=== PATIENT | female | born 1940 | race Caucasian/White ===

== ENCOUNTER 2016-10-15 18:49 | Emergency (ER) | payer BC ==
[~2016-10-15] VITALS: Ht 162.6 cm; Wt 84.5 kg
[~2016-10-15 18:49] MED LIST: ASPI-435 PO; CALC-5 PO; CHOLCAP5 PO; DTR5 PO; LSN/10125 PO; PRLSR20 PO; SIMV40TA2 PO
[2016-10-15 19:07] VITALS: BP 112/73; TEMP 36.9; Ht 162.6 cm; Wt 84.5 kg
[2016-10-15] MEDS ORDERED: XYLOCAINE 1%/SOD BICARB 20 ML VIAL INFIL ONE (19:22)
--- NOTE | 2016-10-15 19:23 | EMERGENCY ROOM VISIT NOTE ---
ED Visit Note First contact with patient: 19:15 I have personally seen and evaluated the patient with the physician special event assistant. I agree with the diagnostic/management decisions and have personally been involved in these decisions and agree with the diagnosis.
[2016-10-15 20:10] VITALS: PULSE 68; O2SAT 93
[2016-10-15] MEDS ORDERED: TRAM-10 PO (20:10)
[2016-10-15] MEDS ORDERED: LISI-729 PO (20:13)
[2016-10-15] MEDS ORDERED: SERT-234 PO (20:14)
--- NOTE | 2016-10-15 20:40 | EMERGENCY ROOM VISIT NOTE ---
History First contact with patient: 19:15 Chief Complaint: LACERATION/CUT (SUT/DERMABOND) Stated Complaint: BIT THROUGH TONGUE History of Present Illness The patient is a 76 year old female who presents to the Emergency Room with complaints of a laceration of her tongue. The patient reports that she hit her face on the night stand last night while attempting to ice her glasses on the table. She does not report falling, and is uncertain exactly how the injury occurred. She denied any loss of consciousness. The patient reports that she did not notice how big the cut was until she saw it this morning upon awakening. She reports that it did bleed extensively on initial injury. She denies any dental pain. She rates her discomfort a 7 out of 10. Tetanus immunization is up-to-date. The patient was evaluated at the [facility] urgent care center and sent here for further evaluation. The patient reports that she did get a prescription for oxacillin from the [facility] urgent care center. Review of Systems 6 system review was performed and was negative except for pertinent positives and negatives as indicated in history of present illness Past Medical/Surgical History Medical Problems: (1) Depressive Disorder Nec (2) Diverticulosis Colon (W/O Ment Of Hemorrhage) (3) Esophageal Reflux (4) Essential (Primary) Hypertension (5) Fem Stress Incontinence (6) Hypertension Nos (7) Osteoporosis Nos (8) Vitamin D Deficiency Nos Surgical Problems: (1) Bariatric Surgery Status (2) Knee Joint Replacement Status Family History Unremarkable Social History Smoking Status: Never Smoker Alcohol Use: none Marital Status: Occupation Status: retired Current/Historical Medications Scheduled Aspirin (Aspirin 81), 81 MG PO HS Calcium-Magnesium W/ Vitamin D (Calcium 500), 600 MG PO BID Cholecalciferol (Vitamin D3), 2 CAP PO BID Lisinopril (Zestril), 5 MG PO DAILY Omeprazole (Prilosec), 20 MG PO QAM Oxybutynin Chloride (Oxybutynin Chloride), 10 MG PO QAM Sertraline (Zoloft), 100 MG PO DAILY Simvastatin (Zocor), 40 MG PO QPM Scheduled PRN Tramadol (Ultram), 50 MG PO Q8H PRN for Pain Allergies Coded Allergies: Bupropion (Verified Allergy, Intermediate, HIVES, 06/08/15) Dust (Verified Allergy, Unknown, HAY FEVER, 06/08/15) Physical Exam Vital Signs Date Time Temp Pulse Resp B/P Pulse Ox O2 Delivery O2 Flow Rate FiO2 10/15/16 20:10 68 16 93 10/15/16 19:07 36.9 90 18 112/73 95 Room Air Pain Rating (0-10): 5.0 Physical Exam CONSTITUTIONAL: Healthy and well nourished. Alert and oriented X 3 with positive affect. Patient does not appear in any acute distress. HEENT: Normocephalic, atraumatic. Pupils equal, round and reactive. OROPHARYNX: Examination shows a 1.5 cm V-shaped laceration on the distal superior aspect of the tongue. No active bleeding noted. She has a moderate amount of white proteinaceous drainage. No overriding erythema or purulent drainage. NECK: Full active range of motion without discomfort. RESPIRATORY: Clear to auscultation bilaterally with no wheezing, crackles, rhonchi or stridor. CARDIOVASCULAR: Regular rate and rhythm with no murmurs, rubs or gallops. INTEGUMENTARY: No rash or other significant dermatologic conditions noted. Medical Decision & Procedures Procedure I discussed suggest a laceration repair under local anesthesia. The patient was in agreement. Using buffered 1% lidocaine without epinephrine, good local anesthesia was administered. 2 4-0 Vicryl simple interrupted and inverted sutures were used to approximate the wound. ED Course Patient history and physical exam were performed. Nurse's notes were reviewed. Laceration repair was performed under local anesthesia. The patient was given instructions on a clear liquid or soft food diet. She was encouraged to take the amoxicillin antibiotics as prescribed by the [facility] urgent care center. Return to the emergency department for any signs of developing infection or other wound concerns. The patient was happy with plan of care, and denied any pain at the time of discharge. The patient was also seen and examined by Dr. Barron, ED attending physician, who agrees with workup and plan of care. Impression Primary Impression: Tongue laceration Departure Information Dispostion Home / Self-Care Forms HOME CARE DOCUMENTATION FORM, IMPORTANT VISIT INFORMATION Patient Instructions My [employer] Additional Instructions Soft food/liquid diet for now. Rinse mouth well after meals. Tylenol as needed for pain. Sutures will dissolve on their own. Follow-up with your family doctor as needed for any further concerns or management. Problem Qualifiers Primary Impression: Tongue laceration Encounter type: initial encounter Qualified Codes: S01.512A - Laceration without foreign body of oral cavity, initial encounter
== END 2016-10-15 20:12 | disposition home or self-care (01) ==
LOC: C.EDB 18:52 → C.EDD 20:12
DX: S01.512A Laceration without foreign body of oral cavity, initial encounter (principal); W22.8XXA Striking against or struck by other objects, initial encounter; I10 Essential (primary) hypertension; F32.9 Major depressive disorder, single episode, unspecified; K21.9 Gastro-esophageal reflux disease without esophagitis; M81.0 Age-related osteoporosis without current pathological fracture; K57.90 Diverticulosis of intestine, part unspecified, without perforation or abscess without bleeding; Z98.84 Bariatric surgery status; Z96.659 Presence of unspecified artificial knee joint; Z79.82 Long term (current) use of aspirin; Z79.899 Other long term (current) drug therapy; Z88.8 Allergy status to other drugs, medicaments and biological substances; Z91.09 Other allergy status, other than to drugs and biological substances

== ENCOUNTER → 2016-12-06 | Outpatient (CLI) | payer BC ==
[~2016-12-06] MED LIST changes: +LISI-729 PO; -LSN/10125 PO; +SERT-234 PO; +TRAM-10 PO
--- NOTE | 2016-12-06 09:45 | DIAGNOSTIC IMAGING REPORT ---
LEFT KNEE 3 VIEWS CLINICAL HISTORY: LEFT KNEE PAIN pain COMPARISON: None. DISCUSSION: Status post total left knee replacement. Good contact between prosthetic and underlying bone. Multiple soft tissue surgical sutures. There is no evidence for soft tissue swelling. IMPRESSION: No acute process post total left knee arthroplasty. Electronically signed by: Luis Alfredo Granda M.D. 12/06/2016 9:44 AM Dictated Date/Time: 12/06/2016 9:43 AM
== END | disposition home or self-care (01) ==
LOC: C.RDSM 13:43
PROVIDERS: ATTEND Physician Assistant
DX: M25.562 Pain in left knee (principal)

== ENCOUNTER 2017-02-17 19:35 | Emergency (ER) | payer BC ==
[~2017-02-17] VITALS: Ht 162.6 cm; Wt 86.2 kg
[2017-02-17 19:37] VITALS: TEMP 36.6; Ht 162.6 cm; Wt 86.2 kg
--- NOTE | 2017-02-17 20:18 | DIAGNOSTIC IMAGING REPORT ---
CT HEAD WITHOUT CONTRAST (CT) CLINICAL HISTORY: Headache status post closed head injury COMPARISON STUDY: 02/17/2011 TECHNIQUE: Axial CT of the brain is performed from the vertex to the skull base. IV contrast was not administered for this examination. A dose lowering technique was utilized adhering to the principles of ALARA. CT DOSE: 955.92 mGy.cm FINDINGS: No intra or extra-axial mass lesions are visualized. There is no CT evidence of acute cortical infarction. There is no evidence of midline shift. There is no acute hemorrhage. No calvarial fractures are visualized. There are minimal white matter hypodensities likely on a small vessel basis. There is no evidence of pathologic ventricular dilatation. There is no evidence of acute sinusitis IMPRESSION: No acute intracranial findings Electronically signed by: Taz Lau M.D. 02/17/2017 8:17 PM Dictated Date/Time: 02/17/2017 8:16 PM
--- NOTE | 2017-02-17 20:21 | DIAGNOSTIC IMAGING REPORT ---
CT OF THE CERVICAL SPINE CLINICAL HISTORY: Neck pain status post trauma COMPARISON STUDY: No previous studies for comparison. CT DOSE: TECHNIQUE: CT scan of the cervical spine was performed from the skull base to the thoracic inlet. Images are reviewed in the axial, sagittal, and coronal planes. IV contrast was not administered for this examination. A dose lowering technique was utilized adhering to the principles of ALARA. FINDINGS: The visualized portions of the lung apices reveal no evidence of pneumothorax. The prevertebral soft tissues are normal. No fractures or traumatic subluxations are visualized. There are multilevel degenerative changes IMPRESSION: No evidence of acute fracture or traumatic subluxation. Electronically signed by: Taz Lau M.D. 02/17/2017 8:20 PM Dictated Date/Time: 02/17/2017 8:18 PM
--- NOTE | 2017-02-17 20:41 | EMERGENCY ROOM VISIT NOTE ---
History Report prepared by Jackie: Gustavo Silver Under the Supervision of: Dr. Yessenia Perea D.O. First contact with patient: 19:42 Chief Complaint: FALL Stated Complaint: HEADACHE,HIT HEAD,FELL History of Present Illness The patient is a 76 year old female who presents to the Emergency Room with complaints of a sudden falling incident that occurred five days ago. She rates her pain as an 8/10 in severity. She states that there has a water leak on the second floor and as she went to step up to enter her house from the garage, she slipped falling backwards. The patient reports that she landed on her back and hit her head on the concrete, but denies any syncopal episode. She states that other than some minor bleeding on the posterior side of her head, she has been fine until yesterday when she developed headache. The patient states that her headache is worsened with movement of her head. She admits that she has a history of knee replacement surgery and takes baby aspirin daily. 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 Source of History: patient Onset: five days ago Position: other (global) Symptom Intensity: 8/10 Timing: other (sudden) Associated Symptoms: + headache, No LOC, No neck pain, No chest pain, No SOB , No nausea, No vomiting, No abdominal pain, No back pain Review of Systems See HPI for pertinent positives & negatives. A total of 10 systems reviewed and were otherwise negative. Past Medical & Surgical Medical Problems: (1) Depressive Disorder Nec (2) Diverticulosis Colon (W/O Ment Of Hemorrhage) (3) Esophageal Reflux (4) Essential (Primary) Hypertension (5) Fem Stress Incontinence (6) Hypertension Nos (7) Osteoporosis Nos (8) Vitamin D Deficiency Nos Surgical Problems: (1) Bariatric Surgery Status (2) Knee Joint Replacement Status Social History Smoking Status: Never Smoker Alcohol Use: none Marital Status: Occupation Status: retired Current/Historical Medications Scheduled Aspirin (Aspirin 81), 81 MG PO HS Calcium-Magnesium W/ Vitamin D (Calcium 500), 600 MG PO BID Cholecalciferol (Vitamin D3), 2 CAP PO BID Lisinopril (Zestril), 5 MG PO DAILY Omeprazole (Prilosec), 20 MG PO QAM Oxybutynin Chloride (Oxybutynin Chloride), 10 MG PO QAM Sertraline (Zoloft), 100 MG PO DAILY Simvastatin (Zocor), 40 MG PO QPM Scheduled PRN Tramadol (Ultram), 50 MG PO Q8H PRN for Pain Allergies Coded Allergies: Bupropion (Verified Allergy, Intermediate, HIVES, 02/17/17) Cat Dander (Verified Allergy, Intermediate, COUGH, SNEEZING, 02/17/17) [place] Oil (Verified Allergy, Intermediate, COUGH, SNEEZING, 02/17/17) Cow Dander (Verified Allergy, Intermediate, COUGH, SNEEZING, 02/17/17) Dust (Verified Allergy, Unknown, HAY FEVER, 02/17/17) Physical Exam Vital Signs Date Time Temp Pulse Resp B/P (MAP) Pulse Ox O2 Delivery O2 Flow Rate FiO2 02/17/17 20:52 67 16 127/67 94 Room Air 02/17/17 19:37 36.6 68 18 147/82 93 Room Air Physical Exam GENERAL: alert, well appearing, well nourished, no distress, non-toxic HEAD: Area of abrasion to the left parietal scalp. EYE EXAM: normal conjunctiva, PERRL and EOM's grossly intact OROPHARYNX: no exudate, no erythema, lips, buccal mucosa, and tongue normal and mucous membranes are moist NECK: supple, no nuchal rigidity, no adenopathy, non-tender LUNGS: Clear to auscultation. Normal chest wall mechanics HEART: no murmurs, S1 normal and S2 normal ABDOMEN: abdomen soft, non-tender, normo-active bowel sounds, no masses, no rebound or guarding. BACK: Back is symmetrical on inspection and there is no deformity, no midline tenderness, no CVA tenderness. SKIN: no rashes and no bruising UPPER EXTREMITIES: upper extremities are grossly normal. LOWER EXTREMITIES: No pitting edema. NEURO EXAM: Normal sensorium, cranial nerves II-XII grossly intact, normal speech, no gross weakness of arms, no gross weakness of legs. Gross sensation intact. Medical Decision & Procedures ER Provider Diagnostic Interpretation: CT scan: Radiology provided the following report CT: The preliminary reading from radiology is the following CT HEAD WITHOUT CONTRAST (CT) CLINICAL HISTORY: Headache status post closed head injury COMPARISON STUDY: 02/17/2011 TECHNIQUE: Axial CT of the brain is performed from the vertex to the skull base. IV contrast was not administered for this examination. A dose lowering technique was utilized adhering to the principles of ALARA. CT DOSE: 955.92 mGy.cm FINDINGS: No intra or extra-axial mass lesions are visualized. There is no CT evidence of acute cortical infarction. There is no evidence of midline shift. There is no acute hemorrhage. No calvarial fractures are visualized. There are minimal white matter hypodensities likely on a small vessel basis. There is no evidence of pathologic ventricular dilatation. There is no evidence of acute sinusitis IMPRESSION: No acute intracranial findings Electronically signed by: Taz Lau M.D. 02/17/2017 8:17 PM Dictated Date/Time: 02/17/2017 8:[address] OF THE CERVICAL SPINE CLINICAL HISTORY: Neck pain status post trauma COMPARISON STUDY: No previous studies for comparison. CT DOSE: TECHNIQUE: CT scan of the cervical spine was performed from the skull base to the thoracic inlet. Images are reviewed in the axial, sagittal, and coronal planes. IV contrast was not administered for this examination. A dose lowering technique was utilized adhering to the principles of ALARA. FINDINGS: The visualized portions of the lung apices reveal no evidence of pneumothorax. The prevertebral soft tissues are normal. No fractures or traumatic subluxations are visualized. There are multilevel degenerative changes IMPRESSION: No evidence of acute fracture or traumatic subluxation. Electronically signed by: Taz Lau M.D. 02/17/2017 8:20 PM Dictated Date/Time: 02/17/2017 8:18 PM ED Course 1943: The patient was evaluated in room B02. A complete history and physical exam was performed. 2034: Upon reevaluation, the patient is feeling better. I discussed the findings and the treatment plan with the patient. She verbalizes agreement and understanding. The patient was discharged home. Medical Decision Differential diagnoses include major intracranial, cervical, spinal, thoracic, abdominal, pelvic and neurologic injury. Fracture, contusion, sprain, strain, laceration, abrasions included as well. Medication Reconciliation: I attest that I have personally reviewed the patient' s current medication list. Blood pressure screening: Patient was found to have a slightly elevated blood pressure due to circumstances. I do not believe that the patient requires hypertension monitoring. Patient well-appearing here despite complaints. Have a low suspicion for any additional occult traumatic injury. Patient with no other complaints or physical exam findings at bedside. Patient with stable gait, tolerating by mouth. Discussed follow-up with family doctor, possible concussion, symptoms to watch and return for, she verbalized understanding was agreeable with plan. Head Trauma GCS Score: 15 Medication Reconcilliation Current Medication List: was personally reviewed by me Blood Pressure Screening Patient's blood pressure: Elevated blood pressure Blood pressure disposition: Elevated BP felt to be situational Impression Primary Impression: Headache Additional Impressions: Closed head injury Fall Scribe Attestation The scribe's documentation has been prepared under my direction and personally reviewed by me in its entirety. I confirm that the note above accurately reflects all work, treatment, procedures, and medical decision making performed by me. Departure Information Dispostion Home / Self-Care Referrals Avery Macdonald M.D. (PCP) Forms HOME CARE DOCUMENTATION FORM, IMPORTANT VISIT INFORMATION Patient Instructions My [facility] Additional Instructions Please call and follow-up with your family doctor. If you have any worsening headache, develop dizziness, vision changes, nausea/vomiting, trouble breathing , chest pain, neck or back pain, numbness or tingling, or you have any other new or concerning symptoms, please return to the emergency room. Problem Qualifiers Primary Impression: Headache Headache type: unspecified Headache chronicity pattern: acute headache Intractability: not intractable Qualified Codes: R51 - Headache Additional Impressions: Closed head injury Encounter type: initial encounter Qualified Codes: S09.90XA - Unspecified injury of head, initial encounter Fall Encounter type: initial encounter Qualified Codes: W19.XXXA - Unspecified fall, initial encounter
[2017-02-17 20:52] VITALS: BP 127/67; PULSE 67; O2SAT 94
== END 2017-02-17 20:52 | disposition home or self-care (01) ==
LOC: C.EDB 19:36
DX: R51 Headache (principal); S09.90XA Unspecified injury of head, initial encounter; W19.XXXA Unspecified fall, initial encounter; F32.9 Major depressive disorder, single episode, unspecified; K57.90 Diverticulosis of intestine, part unspecified, without perforation or abscess without bleeding; K21.9 Gastro-esophageal reflux disease without esophagitis; I10 Essential (primary) hypertension; E55.9 Vitamin D deficiency, unspecified; Z79.82 Long term (current) use of aspirin

== ENCOUNTER → 2017-04-30 | Outpatient (CLI) | payer BC ==
--- NOTE | 2017-04-30 09:08 | DIAGNOSTIC IMAGING REPORT ---
L FEMUR 2 VIEWS CLINICAL HISTORY: 76 years-old Female presenting with LEFT HIP PAIN. TECHNIQUE: Frontal and lateral views of the left femur were obtained. COMPARISON: Plain radiographs of the right knee from 2010. FINDINGS: Multiple curvilinear radiopaque sutures again noted surrounding the total left knee arthroplasty. No acute fracture or malalignment of the left femur. Hip joint congruent. No gross evidence of hardware complication. Small knee joint effusion suspected. Atherosclerosis. IMPRESSION: No acute osseous injury of the left femur. Electronically signed by: Darek Rivers M.D. 04/30/2017 9:07 AM Dictated Date/Time: 04/30/2017 9:05 AM
--- NOTE | 2017-04-30 09:15 | DIAGNOSTIC IMAGING REPORT ---
PELVIS 1 OR 2 VIEWS CLINICAL HISTORY: LEFT HIP PAIN COMPARISON STUDY: Left femur 04/30/2017. FINDINGS: No acute fracture or dislocation within the pelvis or hips. The sacrum appears intact. Mild degenerative changes within the bilateral sacroiliac joints and bilateral hips. Suture material within the left lower quadrant of the abdomen. Degenerative changes and scoliosis of the visualized lumbar spine. Question of focal periostitis within the proximal medial shaft of the left femur. This could represent stress related changes/developing stress fracture. IMPRESSION: Question of focal periostitis within the proximal medial shaft of the left femur. This could represent stress related changes/developing stress fracture. Given the patient's history of left femur pain a dedicated left femur MRI is recommended for further evaluation. Electronically signed by: Mukesh Hampton M.D. 04/30/2017 9:14 AM Dictated Date/Time: 04/30/2017 9:11 AM
== END | disposition home or self-care (01) ==
LOC: C.RDSM 08:43
PROVIDERS: ATTEND Physician Assistant
DX: M79.605 Pain in left leg (principal)

== ENCOUNTER → 2017-05-14 | Outpatient (CLI) | payer BC ==
--- NOTE | 2017-05-14 12:00 | DIAGNOSTIC IMAGING REPORT ---
CT LEFT FEMUR NO CONTRAST CT DOSE: 526.51 mGy.cm CLINICAL HISTORY: STRESS FX OF LEFT FEMUR TECHNIQUE: Helical imaging was acquired in transverse plane. Sagittal and coronal reformatted imaging was performed. A dose lowering technique was utilized adhering to the principles of ALARA. COMPARISON STUDY: Conventional radiographic study dated 04/30/2017 FINDINGS: The bones are osteopenic. There are postsurgical changes of a total left knee arthroplasty. No acute fractures are visualized. There are no areas of periostitis to indicate a stress fracture. It should be noted that MRI is more sensitive for the detection of a stress injury. There are multiple metallic sutures within the anterior soft tissues at the level of the knee. There are vascular calcifications present. IMPRESSION: 1. No fractures identified. 2. Osteopenia. Electronically signed by: Taz Lau M.D. 05/14/2017 11:59 AM Dictated Date/Time: 05/14/2017 11:54 AM
== END | disposition home or self-care (01) ==
LOC: C.CTS 11:35
PROVIDERS: ATTEND Family Medicine
DX: M85.852 Other specified disorders of bone density and structure, left thigh (principal)

== ENCOUNTER 2017-10-21 12:44 | Emergency (ER) | payer BC ==
[~2017-10-21] VITALS: Ht 162.6 cm; Wt 88.0 kg
[2017-10-21 12:58] VITALS: TEMP 36.9; Ht 162.6 cm; Wt 88.0 kg
[2017-10-21] MEDS ORDERED: SODIUM CHLORIDE 0.9% 1000ML 1,000 ML IV STA (13:18)
[2017-10-21] MEDS ORDERED: OPTIRAY 320 IV PRN (13:45)
--- NOTE | 2017-10-21 14:04 | EMERGENCY ROOM VISIT NOTE ---
ED Visit Note First contact with patient: 13:04 I have seen and examined this patient with Theresa Shields and generally agree with the treatment plan as discussed. Current/Historical Medications Scheduled Aspirin (Aspirin 81), 81 MG PO HS Calcium-Magnesium W/ Vitamin D (Calcium 500), 600 MG PO BID Cholecalciferol (Vitamin D3), 2 CAP PO BID Lisinopril (Zestril), 5 MG PO DAILY Omeprazole (Prilosec), 20 MG PO QAM Oxybutynin Chloride (Oxybutynin Chloride), 10 MG PO QAM Sertraline (Zoloft), 100 MG PO DAILY Simvastatin (Zocor), 40 MG PO QPM Scheduled PRN Tramadol (Ultram), 50 MG PO Q8H PRN for Pain Allergies Coded Allergies: Bupropion (Verified Allergy, Intermediate, HIVES, 02/17/17) Cat Dander (Verified Allergy, Intermediate, COUGH, SNEEZING, 02/17/17) [place] Oil (Verified Allergy, Intermediate, COUGH, SNEEZING, 02/17/17) Cow Dander (Verified Allergy, Intermediate, COUGH, SNEEZING, 02/17/17) Dust (Verified Allergy, Unknown, HAY FEVER, 02/17/17) Vital Signs Date Time Temp Pulse Resp B/P (MAP) Pulse Ox O2 Delivery O2 Flow Rate FiO2 10/21/17 12:58 36.9 83 18 119/66 96 Room Air Laboratory Results Test 10/21/17 13:18 Departure Information Referrals Avery Macdonald M.D. (PCP) Patient Instructions My [facility]
--- NOTE | 2017-10-21 14:05 | EMERGENCY ROOM VISIT NOTE ---
ED Visit Note First contact with patient: 13:04 CHIEF COMPLAINT: Fall, ankle pain, rib pain HISTORY OF PRESENTING ILLNESS: This is a 77-year-old female who presents to the emergency department by private vehicle with complaint of right ankle pain, left rib pain, and head injury after a fall. Patient states she got up in the middle of the night around 3 AM to go to the bathroom, states she stepped on something and twisted her right ankle causing her to fall. She states that she hit her left side and head on a chair and then the floor. She denies loss of consciousness. She states she was able to get herself up on her own, and was able to walk on the right ankle, but has continued to have pain and swelling of the ankle. She reports a mild headache and has noticed some bruising around her left eye and forehead. She denies any vision changes of blurry or double vision, denies neck pain, denies blood from the mouth, nose, or ears. She complains of left sided rib pain as well, stating that she fell onto her left side, states that she has increased pain with movement and taking deep breaths, improved pain with rest, rates as 7/10. She has taken naproxen, tramadol, and Tylenol for her pain with minimal improvement. She denies any shortness of breath, wheezing, cough, hemoptysis, dizziness or syncope, nausea, vomiting, diarrhea, dysuria or hematuria, or rash. She does take a baby aspirin daily, denies any other blood thinners. REVIEW OF SYSTEMS: A complete 10 point review of systems was reviewed with the patient with pertinent positives and negatives as per history of present illness. All else were negative. PAST MEDICAL HISTORY: Hypertension, hyperlipidemia, GERD, depression. SOCIAL HISTORY: Lives at home alone. Denies tobacco, alcohol, recreational drug use. ALLERGIES: Reviewed in chart. PHYSICAL EXAM: VITAL SIGNS - Vital signs and nursing notes were reviewed. GENERAL - Pleasant and cooperative. No acute distress. Communicates well with provider and answers questions appropriately. HEAD - Normocephalic. There is ecchymosis extending from the left anterior forehead, periorbital ecchymosis and swelling. There is tenderness to palpation of the orbital rim. No Martinez's Sign. No depressed skull fractures palpable. EYES - PERRL with EOMI bilaterally. Without subconjunctival hemorrhage. Palpebral conjunctiva pink and moist with no injection. EARS - No deformities of external structures noted on gross examination bilaterally. No hemotympanum present. No tympanic perforation noted. NOSE - Midline and without cyanosis. No epistaxis or clear watery discharge noted. Septum midline without deviation. No septal hematoma noted. No overlying ecchymosis noted. MOUTH/OROPHARYNX - Without perioral cyanosis. Tongue midline with equal elevation of palate bilaterally. No blood noted in the oropharynx. No tonsillar hypertrophy, erythema, or exudates noted. No dental fractures noted. NECK - FROM assessed. No nuchal rigidity. No tenderness to palpation over the cervical spinous processes. No cervical paraspinal muscle tenderness noted. LUNGS - Chest wall symmetric without accessory muscle use, intercostals retractions, ecchymosis or abrasions. There is tenderness to palpation of the anterior and lateral left chest wall, no crepitus, no palpable fractures or open wounds on the chest wall. Decreased breath sounds on the left compared to right, clear to auscultation with no wheezes, Rales, rhonchi, or stridor heard. CARDIAC - RRR with S1/S2. No murmur, rubs, or gallops appreciated. ABDOMEN - There is tenderness to palpation of the LUQ and left flank. No ecchymosis or abrasions. Abdominal contour normal without pulsations or visible masses. BS normoactive all four quadrants. EXTREMITIES - There is swelling and tenderness to palpation along the lateral aspect of the foot and ankle, most significant over the lateral malleolus. Tenderness at the proximal 5th metatarsal to palpation. No gross deformities noted of the extremities. +2 radial and dorsalis pedis pulses palpated throughout. FROM with no tremors, fasciculations, or clonus noted on PROM throughout. +5/5 strength noted in UE/LE bilaterally. NEUROLOGIC - Cranial nerves II through XII grossly intact. Sensory intact to light touch throughout. Patient able to perform rapid alternating movements appropriately. Negative Romberg and Pronator Drift. PSYCH - A&Ox4 and cooperates fully with examiner. Pt is very pleasant and interacts well with examiner. ED COURSE AND MEDICAL DECISION MAKING: CC: Patient presenting with complaint of fall, head injury, left rib pain, right ankle pain DIFFERENTIAL DIAGNOSIS: Includes, but not limited to traumatic injury including concussion, intracranial hemorrhage, cervical spine injury, rib fracture, rib contusion, pneumothorax, hemothorax, pulmonary contusion, cardiac contusion, solid organ injury, intra-abdominal hemorrhage, ankle sprain/strain, fracture, among others. INTERPRETATION OF LABS: Mild leukocytosis, no anemia, no significant electrolyte abnormalities, normal renal function, normal liver enzymes and lipase. Coagulation factors within normal limits. Negative troponin. Urinalysis consistent with UTI. IMAGING: HEAD WITHOUT CONTRAST (CT) CLINICAL HISTORY: 77 years-old Female presenting with fall, hit head, on aspirin. TECHNIQUE: Multidetector CT imaging of the head was performed without the use of intravenous contrast. IV contrast: None. A dose lowering technique was used consistent with the principles of ALARA (as low as reasonably achievable). COMPARISON: 02/17/2017. CT DOSE (mGy.cm): The estimated cumulative dose is 2492.63 mGy.cm. FINDINGS: [employer] topogram: Unremarkable. Ventricles and sulci normal in size. Brain parenchyma normal in appearance with preserved bravo-white differentiation. No mass effect or midline shift. No hemorrhage or acute territorial infarct. No extra-axial fluid collection. Paranasal sinuses and mastoid air cells clear. Calvarium intact. IMPRESSION: 1. No acute intracranial abnormality. ----- MAXILLOFACIAL CT WITHOUT CONTRAST CLINICAL HISTORY: fall, hit head, brusing around left eye COMPARISON STUDY: Head CT February 17, 2017. TECHNIQUE: A maxillofacial CT was performed without IV contrast. Coronal and sagittal reformats were viewed. A dose lowering technique was utilized adhering to the principles of ALARA. FINDINGS: Left facial contusion is noted. The left globe is intact and there is no retrobulbar hematoma. No acute facial fracture is identified. The orbital floors are intact. Multiple dental outcomes are noted. Alignment of the temporomandibular joints is anatomic. IMPRESSION: No acute facial fracture. Left facial contusion. Left globe intact with no retrobulbar hematoma. ----- CT OF THE CERVICAL SPINE WITHOUT CONTRAST CLINICAL HISTORY: EVALUATE FOR TRAUMA/INJURY COMPARISON STUDY: Cervical spine CT February 17, 2017. TECHNIQUE: Helical axial images of the cervical spine were obtained without IV contrast. Sagittal and coronal reconstructions were viewed. A dose lowering technique was utilized adhering to the principles of ALARA. FINDINGS: Reversal of the normal cervical lordosis is unchanged since exam of February 17, 2017. There is severe multilevel degenerative disc disease and moderate multilevel facet arthrosis. The craniocervical junction is intact. There is no acute fracture. There is no prevertebral edema. Slight anterolisthesis of C7 on T1 and T1 on T2 is unchanged. IMPRESSION: No acute cervical spine fracture or subluxation. ----- CT (CHEST) THORAX WITH CLINICAL HISTORY: 77 years-old Female presenting with fall, left ant and lat rib pain. TECHNIQUE: Multidetector CT imaging of the chest was performed after the administration of intravenous contrast. IV contrast: 117 mL of Optiray 320. A dose lowering technique was used consistent with the principles of ALARA (as low as reasonably achievable). COMPARISON: Chest x-ray from 2011. CT DOSE (mGy.cm): The estimated cumulative dose is 2492.[address] scans. FINDINGS: [employer] topogram: Surgical clips project over the epigastrium. Scoliosis. On soft tissue windows, calcified nodule may be present in the right lobe of the thyroid. Architectural distortion of the breasts may suggest prior reduction mammoplasty. No axillary, supraclavicular, hilar, or mediastinal lymphadenopathy. Four-vessel aortic arch. Left atrial enlargement of the heart. Coronary artery and aortic valve calcification. No pericardial or pleural effusion. Biliary duct dilatation likely a reservoir effect in the post cholecystectomy state. 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 On lung windows, solid peripheral 6 mm nodule at the posterior basal right lower lobe (series 11 image 188). Immediately superior to this is a smaller solid 4 mm nodule in the same segment (series 11 image 180). Respiratory motion artifact mildly degrades evaluation of the lung parenchyma. Solid peripheral 5 mm nodule at the central base of the right lower lobe (series 11 image 182). 2 solid punctate nodules noted in the periphery of the left upper lobe (series 11 image 110). Solid peripheral 4 mm nodule in the posterior apical segment of the left upper lobe (series 11 image 72). Solid 3 mm nodule in the superior segment of the left lower lobe (series 11 image 114). Minimal dependent changes and dependent nodularity, possibly atelectasis. Central airways patent. On bone windows, degenerative changes of the spine. Nondisplaced fractures suspected at the left third and fourth ribs laterally given contour abnormality. IMPRESSION: 1. Findings suggest nondisplaced fractures of the lateral left third and fourth ribs. No other evidence of acute intrathoracic injury. 2. Multiple solid pulmonary nodules measuring up to 6 mm. Follow-up per [place] [employer] 2017 recommendations below. ----- ABD/PELVIS IV CONTRAST ONLY CLINICAL HISTORY: 77 years-old Female presenting with fall, LUQ pain, rib pain. TECHNIQUE: Multidetector CT of the abdomen and pelvis was performed after the administration of intravenous contrast. IV contrast: 117 mL of Optiray 320. A dose lowering technique was used consistent with the principles of ALARA (as low as reasonably achievable). COMPARISON: None. CT DOSE (mGy.cm): The estimated cumulative dose is 2492.63. FINDINGS: [employer] topogram: Surgical clips project over the epigastrium. Lung bases: Minimal basilar opacities, likely atelectasis. Multiple solid pulmonary nodules at the lung bases. Multichamber enlargement of the heart. Coronary artery calcification. No pericardial or pleural effusion. Liver: Normal morphology. Subcentimeter hypodense lesion in the right hepatic lobe, indeterminate but likely hepatic cyst. Patent hepatic vasculature. Biliary: Mild biliary ductal prominence likely a reservoir effect in the post cholecystectomy state. Gallbladder surgically absent. Pancreas: Moderate parenchymal atrophy. Spleen: Normal. Adrenal glands: Nonspecific thickening of the lateral limb of the left adrenal gland. Right adrenal gland normal. Kidneys and ureters: Mild left perinephric fat stranding.. Mild bilateral periureteral fat stranding. Significant urothelial thickening greater on the left but bilateral. No hydronephrosis. No nephrolithiasis. No ureteral calculus. Bladder: Circumferential bladder wall thickening. Pelvic organs: Uterus surgically absent. No adnexal mass. Bowel: Severe diverticulosis of the sigmoid colon. Mild stool burden throughout normal caliber colon. Normal appendix. No bowel obstruction. 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 The distal small bowel anastomosis is patent. No abnormal distention of the pancreaticobiliary limb or excluded stomach. Peritoneal cavity: No free fluid or intraperitoneal gas. Lymph nodes: No enlarged lymph nodes in the abdomen or pelvis. Vasculature: Atherosclerosis of the normal caliber abdominal aorta. IVC patent. Abdominal wall: Postsurgical changes of the umbilical abdominal wall. Atrophy of the rectus abdominis greater on the right. Musculoskeletal: Degenerative changes of the spine. Acute fracture of the left lateral eighth through 10th ribs. IMPRESSION: 1. Acute fractures of the lateral eighth through 10th left ribs. 2. No evidence of intra-abdominal injury. 3. Multiple solid pulmonary nodules at the lung bases. Please see separate dictated CT of the chest. 4. Diverticulosis. 5. 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 6. Significant urothelial thickening and mild perinephric and periureteral inflammatory change accompanied by mild circumference of bladder wall thickening. This raises concern for cystitis with upper tract involvement of infection. Correlate with urinalysis. No hydronephrosis. ----- R ANKLE MIN 3 VIEWS ROUTINE CLINICAL HISTORY: fall, twisted foot, ankle, eval trauma COMPARISON: None FINDINGS: Alignment of the right ankle is anatomic. There is no acute fracture. There is moderate lateral ankle soft tissue swelling. Talar dome is intact. There is moderate plantar calcaneal spurring. Note is made of moderate to severe mid foot osteoarthritis. IMPRESSION: 1. No acute fracture or dislocation of the right ankle. 2. 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 3. Lateral ankle soft tissue swelling. ----- R FOOT MIN 3 VIEWS ROUTINE CLINICAL HISTORY: Right foot pain status post trauma COMPARISON: None. DISCUSSION: The bones are osteopenic. No acute fractures are visualized. Moderate degenerative changes are present within the midfoot and hindfoot. As a plantar calcaneal spur. IMPRESSION: 1. Osteopenia 2. No acute fractures 3. Moderate arthritic changes EKG: Shows normal sinus rhythm with a rate of 77 bpm, no acute ischemic changes , no significant changes when compared to previous EKG from 02/19/2011 by my interpretation. MEDICATION RECONCILIATION: I attest that I have personally reviewed the patient 's current medication list. INITIAL VITAL SIGNS REVIEW: I reviewed the patient's initial vital signs and interpret them as follows: T: Afebrile; BP: Normotensive; HR: WNL; RR: WNL; Pulse Ox: WNL on RA. Blood pressure screening: The patient was found to have normal blood pressure on screening and does not require follow-up for repeat blood pressure check. SUMMARY: Patient was evaluated at bedside, history and physical exam performed. Patient is alert and oriented, in no acute distress, resting calmly on the stretcher. There is moderate swelling and tenderness to palpation over the lateral aspect of the right ankle and foot. She is neurovascularly intact distal to the injury. There is a moderate amount of periorbital ecchymosis and swelling about the left eye, extending up into the forehead. There is tenderness to palpation of the anterior and lateral There are no neurologic deficits on exam. Vision is grossly intact. Left rib cage, as well as left upper quadrant abdominal tenderness to palpation. Orders were placed at bedside for labs, IV fluids for hydration and setting of trauma, x-rays of the right foot and ankle, CT imaging of the head, cervical spine, chest, abdomen and pelvis to evaluate for traumatic injury. Patient was offered something for pain, she did not want any narcotics because she drove herself here. She has already taken Tylenol and tramadol, limiting pain management options. Patient states she does not want anything for pain at this time. EKG reviewed at bedside, no acute ischemic changes noted. Patient discussed with Dr. Coulter, who agrees with my assessment and plan. Labs and imaging reviewed as above, notable for 5 left-sided rib fractures, as well as incidental finding for cystitis and possible developing pyelonephritis. Dr. Coulter and myself spoke with the patient and discussed her results with her. She was offered admission, but is adamant about wishing to go home. We did discuss pain management options and the importance of incentive spirometry use in the setting of her multiple rib fractures, she verbalized understanding. Patient does deny any symptoms of a urinary tract infection, denies any recent fevers or chills, and denies back pain. However given the findings on CT in setting of obvious infected UA, will treat this patient like a pyelonephritis. I discussed the patient with Mariana, ED pharmacist, who recommended giving a dose of IV Rocephin now and recommended Cefdinir for management of pyelonephritis, to avoid use of fluoroquinolones or Bactrim in this patient of advanced age. Patient was placed on the cardiac nurse specialist and monitored throughout the entire extent of their stay. In addition, the patient's pulse oximetry was monitored throughout the entire stay. Any abnormalities or aberrancies were addressed appropriately. Patient reassessed multiple times throughout ED stay, she did report some improvement in her pain after an additional dose of Tylenol, and has remained stable and well-appearing during her time in the emergency department. Patient was updated on all results and plan for management at home, particularly use of incentive spirometer and pain control for preventing pneumonia, and treatment of her UTI. She was encouraged to follow closely with her PCP, and was also given strict return precautions should her symptoms worsen, she verbalized understanding. Patient was discharged home in stable condition and ambulatory. Nursing staff notified me that the patient left prior to receiving her written discharge instructions. The patient was made aware of CT results and need for follow up chest CT regarding pulmonary nodules. Attempts were made to contact the patient regarding her discharge instructions, but unable to reach her via phone. I spoke with Anthony, charged nurse, and the Chest CT report will be faxed to the patient's PCP tomorrow to ensure appropriate follow up. Current/Historical Medications Scheduled Aspirin (Aspirin 81), 81 MG PO HS Calcium-Magnesium W/ Vitamin D (Calcium 500), 600 MG PO BID Cefdinir (Omnicef), 1 CAP PO BID Cholecalciferol (Vitamin D3), 2 CAP PO BID Lisinopril (Zestril), 5 MG PO DAILY Omeprazole (Prilosec), 20 MG PO QAM Oxybutynin Chloride (Oxybutynin Chloride), 10 MG PO QAM Sertraline (Zoloft), 100 MG PO DAILY Simvastatin (Zocor), 40 MG PO QPM Scheduled PRN Oxycodone Ir (Roxicodone Ir), 1-2 TAB PO Q6H PRN for Severe Pain Tramadol (Ultram), 50 MG PO Q8H PRN for Pain Allergies Coded Allergies: Bupropion (Verified Allergy, Intermediate, HIVES, 02/17/17) Cat Dander (Verified Allergy, Intermediate, COUGH, SNEEZING, 02/17/17) Alden Oil (Verified Allergy, Intermediate, COUGH, SNEEZING, 02/17/17) Cow Dander (Verified Allergy, Intermediate, COUGH, SNEEZING, 02/17/17) Dust (Verified Allergy, Unknown, HAY FEVER, 02/17/17) Vital Signs Date Time Temp Pulse Resp B/P (MAP) Pulse Ox O2 Delivery O2 Flow Rate FiO2 10/21/17 17:13 85 16 135/81 94 Room Air 10/21/17 15:55 82 18 132/76 96 Room Air 10/21/17 14:45 77 20 122/63 96 Room Air 10/21/17 14:45 96 Room Air 10/21/17 12:58 36.9 83 18 119/66 96 Room Air Laboratory Results 10/21/17 14:08 Red Blood Count 4.33, Mean Corpuscular Volume 89.1, Mean Corpuscular Hemoglobin 30.3, Mean Corpuscular Hemoglobin Concent 33.9, Mean Platelet Volume 10.4, Neutrophils (%) (Auto) 76.1, Lymphocytes (%) (Auto) 10.0, Monocytes (%) (Auto) 12.8, Eosinophils (%) (Auto) 0.5, Basophils (%) (Auto) 0.3, Neutrophils # (Auto ) 8.73, Lymphocytes # (Auto) 1.15, Monocytes # (Auto) 1.47, Eosinophils # (Auto ) 0.06, Basophils # (Auto) 0.03 10/21/17 14:08 Test 10/21/17 13:58 10/21/17 14:08 10/21/17 15:55 Bedside Glucose 112 mg/dl (70-90) White Blood Count 11.48 K/uL (4.8-10.8) Red Blood Count 4.33 M/uL (4.2-5.4) Hemoglobin 13.1 g/dL (12.0-16.0) Hematocrit 38.6 % (37-47) Mean Corpuscular Volume 89.1 fL (80-100) Mean Corpuscular Hemoglobin 30.3 pg (25-34) Mean Corpuscular Hemoglobin Concent 33.9 g/dl (32-36) Platelet Count 229 K/uL (130-400) Mean Platelet Volume 10.4 fL (7.4-10.4) Neutrophils (%) (Auto) 76.1 % Lymphocytes (%) (Auto) 10.0 % Monocytes (%) (Auto) 12.8 % Eosinophils (%) (Auto) 0.5 % Basophils (%) (Auto) 0.3 % Neutrophils # (Auto) 8.73 K/uL (1.4-6.5) Lymphocytes # (Auto) 1.15 K/uL (1.2-3.4) Monocytes # (Auto) 1.47 K/uL (0.11-0.59) Eosinophils # (Auto) 0.06 K/uL (0-0.5) Basophils # (Auto) 0.03 K/uL (0-0.2) RDW Standard Deviation 47.4 fL (36.4-46.3) RDW Coefficient of Variation 14.4 % (11.5-14.5) Immature Granulocyte % (Auto) 0.3 % Immature Granulocyte # (Auto) 0.04 K/uL (0.00-0.02) Prothrombin Time 11.1 SECONDS (9.0-12.0) Prothromb Time International Ratio 1.1 (0.9-1.1) Activated Partial Thromboplast Time 27.8 SECONDS (21.0-31.0) Partial Thromboplastin Ratio 1.1 Anion Gap 7.0 mmol/L (3-11) Est Creatinine Clear Calc Drug Dose 67.6 ml/min Estimated GFR () 88.3 Estimated GFR (Non- 76.2 BUN/Creatinine Ratio 22.3 (10-20) Calcium Level 8.6 mg/dl (8.5-10.1) Total Bilirubin 0.6 mg/dl (0.2-1) Direct Bilirubin 0.1 mg/dl (0-0.2) Aspartate Amino Transf (AST/SGOT) 14 U/L (15-37) Alanine Aminotransferase (ALT/SGPT) 12 U/L (12-78) Alkaline Phosphatase 99 U/L (45-117) Troponin I < 0.015 ng/ml (0-0.045) Total Protein 7.3 gm/dl (6.4-8.2) Albumin 2.9 gm/dl (3.4-5.0) Lipase 59 U/L (73-393) Urine Color YELLOW Urine Appearance TURBID (CLEAR) Urine pH 6.0 (4.5-7.5) Urine Specific [place] 1.027 (1.000-1.030) Urine Protein TRACE (NEG) Urine Glucose (UA) NEG (NEG) Urine Ketones NEG (NEG) Urine Occult Blood 1+ (NEG) Urine Nitrite POS (NEG) Urine Bilirubin NEG (NEG) Urine Urobilinogen NEG (NEG) Urine Leukocyte Esterase LARGE (NEG) Urine WBC (Auto) >30 /hpf (0-5) Urine RBC (Auto) 0-4 /hpf (0-4) Urine Hyaline Casts (Auto) 1-5 /lpf (0-5) Urine Epithelial Cells (Auto) 10-20 /lpf (0-5) Urine Bacteria (Auto) 4+ (NEG) Medications Administered Medications (Trade) Dose Ordered Sig/Ojy Route Start Time Stop Time Status Last Admin Dose Admin Sodium Chloride 1,000 ml @ 999 mls/hr Q1H1M STAT IV 10/21/17 13:18 10/21/17 14:18 DC 10/21/17 13:18 999 MLS/HR Acetaminophen (Tylenol Tab) 1,000 mg NOW STAT PO 10/21/17 16:23 10/21/17 16:24 DC 10/21/17 16:41 1,000 MG Ceftriaxone Sodium (Rocephin Im) 1,000 mg NOW STAT IM 10/21/17 16:56 10/21/17 16:57 DC 10/21/17 17:06 1,000 MG Departure Information Impression Primary Impression: Multiple rib fractures involving four or more ribs Additional Impressions: UTI (urinary tract infection) Right ankle sprain Facial contusion Dispostion Home / Self-Care Condition GOOD Prescriptions Cefdinir (OMNICEF) 300 Mg Cap 1 CAP PO BID for 10 Days, #20 CAP Prov: Theresa Shields CRNP 10/21/17 Oxycodone Ir (Roxicodone Ir) 5 Mg Tab 1-2 TAB PO Q6H Y for Severe Pain, #20 TAB Prov: Theresa Shields CRNP 10/21/17 Referrals Avery Macdonald M.D. (PCP) Anton Corado M.D. Patient Instructions ED Fx Rib, ED Sprain Ankle, ED UTI Cystitis Female, ED Walker Use, [facility] Additional Instructions You have been evaluated and treated in the Emergency Department for injuries secondary to your fall earlier today. Workup today has shown that you have 5 left-sided rib fractures (ribs 4, 5, 8, 9, and 10), a left facial contusion, a right ankle sprain, and a urinary tract infection (UTI). You have been prescribed oxycodone to be taken for SEVERE pain. Please take as prescribed. This is a narcotic, you should not drive, operate machinery, or drink alcohol while you are taking this medication. All narcotics have the potential to cause constipation, you should take an [id number] stool softener such as Colace or Senna while you are taking the narcotic to help prevent against constipation. For pain control, you can use the following [id number] medicines (if >12 yo): - Extra strength (500mg/tab) Tylenol (acetaminophen) 1-2 tabs every 6-8 hours as needed. Do not exceed 6 tablets in a 24 hour period. Avoid taking more than 3 grams (3000 mg) of Tylenol per day. This includes any other sources of acetaminophen you may take on a regular basis. You should not take any NSAIDs such as aspirin, ibuprofen, Aleve or naproxen for the next 48 hours, as these medications can increase your risk for bleeding and bruising. After 48 hours, you may take Regular strength (200 mg/tab) Advil (ibuprofen) 1- 2 tabs every 4-6 hours as needed for pain. Do not exceed a dose of 2400 mg per day. You may also resume taking your daily aspirin after 48 hours. Apply ice to the areas of pain for the first 3 days to help decrease pain and inflammation. After the first 3 days, a heating pad can be used over the area for continued soothing relief. Use the incentive spirometer as directed, every 10-15 minutes while awake. Hugging a small pillow while coughing or sneezing can help to reduce your pain. You have been prescribed Cefdinir to be taken twice a day for 10 days. This is an antibiotic to treat your urinary tract infection. All antibiotics have the potential to cause diarrhea. Stop this medication and contact a medical provider if you were to develop any significant adverse side effects including: wheezing, shortness of breath, passing out, vomiting, or a diffuse rash. Always take antibiotics as directed and COMPLETE the ENTIRE course regardless of the improvement of your symptoms. You have been placed in an ankle splint to help support your ankle sprain. Use your walker at home to help support herself when walking to try to keep as much weight off of the right ankle as possible. Keep the right ankle elevated as much as possible to help reduce pain and swelling. Apply ice to the ankle for the next 2 days. Drink plenty of fluids to stay well hydrated. Please follow-up with your Primary Care Provider in the next 2-3 days for further evaluation and treatment of your rib pain. You should also follow-up with your orthopedic surgeon in the next week regarding your ankle injury. Please return to the emergency department if your symptoms worsen, including severe worsening pain, shortness or breath, development of a wet cough or coughing up blood, fevers or chills, low back pain, persistent nausea/vomiting, large amounts of blood in your urine or stool, severe headache, vision changes, confusion, numbness or weakness on one side of the body, balance issues or difficulty walking, or any other concerns. Problem Qualifiers Additional Impressions: UTI (urinary tract infection) Urinary tract infection type: acute cystitis Hematuria presence: with hematuria Qualified Codes: N30.01 - Acute cystitis with hematuria Right ankle sprain Encounter type: initial encounter Involved ligament of ankle: unspecified ligament Qualified Codes: S93.401A - Sprain of unspecified ligament of right ankle, initial encounter Facial contusion Encounter type: initial encounter Qualified Codes: S00.83XA - Contusion of other part of head, initial encounter
[2017-10-21 14:19] LABS: BASO % 0.3 %; BASO ABS # 0.03 K/uL (0-0.2); EOS % 0.5 %; EOS ABS # 0.06 K/uL (0-0.5); HEMATOCRIT 38.6 % (37-47); HEMOGLOBIN 13.1 g/dL (12.0-16.0); IG# 0.04 K/uL (0.00-0.02); LYMPH ABS # 1.15 K/uL (1.2-3.4); MEAN CELL VOLUME 89.1 fL (80-100); MEAN CORPUSCULAR HEMOGLOBIN 30.3 pg (25-34); MEAN CORPUSCULAR HGB CONC 33.9 g/dl (32-36); MEAN PLATELET VOLUME 10.4 fL (7.4-10.4); MONO % 12.8 %; MONO ABS # 1.47 K/uL (0.11-0.59); NEUT % 76.1 %; NEUT ABS # 8.73 K/uL (1.4-6.5); PLATELET COUNT 229 K/uL (130-400); RED CELL DISTRIBUTION WIDTH CV 14.4 % (11.5-14.5); RED CELL DISTRIBUTION WIDTH SD 47.4 fL (36.4-46.3); WHITE BLOOD COUNT 11.48 K/uL (4.8-10.8)
[2017-10-21 14:31] LABS: INR 1.1 (0.9-1.1); PTT PATIENT 27.8 SECONDS (21.0-31.0)
[2017-10-21 14:37] LABS: ALBUMIN 2.9 gm/dl (3.4-5.0); ALT/SGPT 12 U/L (12-78); BLOOD UREA NITROGEN 17 mg/dl (7-18); CALCIUM 8.6 mg/dl (8.5-10.1); CARBON DIOXIDE 27 mmol/L (21-32); CREATININE 0.76 mg/dl (0.60-1.20); GLUCOSE 110 mg/dl (70-99); LIPASE 59 U/L (73-393); POTASSIUM 3.9 mmol/L (3.5-5.1); SODIUM 134 mmol/L (136-145)
[2017-10-21 14:42] LABS: ALKALINE PHOSPHATASE 99 U/L (45-117); AST/SGOT 14 U/L (15-37); TOTAL PROTEIN 7.3 gm/dl (6.4-8.2)
[2017-10-21 14:45] VITALS: O2SAT 96
--- NOTE | 2017-10-21 15:36 | DIAGNOSTIC IMAGING REPORT ---
HEAD WITHOUT CONTRAST (CT) CLINICAL HISTORY: 77 years-old Female presenting with fall, hit head, on aspirin. TECHNIQUE: Multidetector CT imaging of the head was performed without the use of intravenous contrast. IV contrast: None. A dose lowering technique was used consistent with the principles of ALARA (as low as reasonably achievable). COMPARISON: 02/17/2017. CT DOSE (mGy.cm): The estimated cumulative dose is 2492.63 mGy.cm. FINDINGS: Pediatric Anesthesiologist topogram: Unremarkable. Ventricles and sulci normal in size. Brain parenchyma normal in appearance with preserved bravo-white differentiation. No mass effect or midline shift. No hemorrhage or acute territorial infarct. No extra-axial fluid collection. Paranasal sinuses and mastoid air cells clear. Calvarium intact. IMPRESSION: 1. No acute intracranial abnormality. Electronically signed by: Darek Rivers M.D. 10/21/2017 3:35 PM Dictated Date/Time: 10/21/2017 3:34 PM
--- NOTE | 2017-10-21 15:49 | DIAGNOSTIC IMAGING REPORT ---
MAXILLOFACIAL CT WITHOUT CONTRAST CLINICAL HISTORY: fall, hit head, brusing around left eye COMPARISON STUDY: Head CT February 17, 2017. TECHNIQUE: A maxillofacial CT was performed without IV contrast. Coronal and sagittal reformats were viewed. A dose lowering technique was utilized adhering to the principles of ALARA. FINDINGS: Left facial contusion is noted. The left globe is intact and there is no retrobulbar hematoma. No acute facial fracture is identified. The orbital floors are intact. Multiple dental outcomes are noted. Alignment of the temporomandibular joints is anatomic. IMPRESSION: No acute facial fracture. Left facial contusion. Left globe intact with no retrobulbar hematoma. Electronically signed by: Colton Chou M.D. 10/21/2017 3:48 PM Dictated Date/Time: 10/21/2017 3:45 PM
--- NOTE | 2017-10-21 15:53 | DIAGNOSTIC IMAGING REPORT ---
CT OF THE CERVICAL SPINE WITHOUT CONTRAST CLINICAL HISTORY: EVALUATE FOR TRAUMA/INJURY COMPARISON STUDY: Cervical spine CT February 17, 2017. TECHNIQUE: Helical axial images of the cervical spine were obtained without IV contrast. Sagittal and coronal reconstructions were viewed. A dose lowering technique was utilized adhering to the principles of ALARA. FINDINGS: Reversal of the normal cervical lordosis is unchanged since exam of February 17, 2017. There is severe multilevel degenerative disc disease and moderate multilevel facet arthrosis. The craniocervical junction is intact. There is no acute fracture. There is no prevertebral edema. Slight anterolisthesis of C7 on T1 and T1 on T2 is unchanged. IMPRESSION: No acute cervical spine fracture or subluxation. Electronically signed by: Colton Chou M.D. 10/21/2017 3:52 PM Dictated Date/Time: 10/21/2017 3:48 PM
--- NOTE | 2017-10-21 15:53 | DIAGNOSTIC IMAGING REPORT ---
CT (CHEST) THORAX WITH CLINICAL HISTORY: 77 years-old Female presenting with fall, left ant and lat rib pain. TECHNIQUE: Multidetector CT imaging of the chest was performed after the administration of intravenous contrast. IV contrast: 117 mL of Optiray 320. A dose lowering technique was used consistent with the principles of ALARA (as low as reasonably achievable). COMPARISON: Chest x-ray from 2011. CT DOSE (mGy.cm): The estimated cumulative dose is 2492.[address] scans. FINDINGS: Weight Loss Consultant topogram: Surgical clips project over the epigastrium. Scoliosis. On soft tissue windows, calcified nodule may be present in the right lobe of the thyroid. Architectural distortion of the breasts may suggest prior reduction mammoplasty. No axillary, supraclavicular, hilar, or mediastinal lymphadenopathy. Four-vessel aortic arch. Left atrial enlargement of the heart. Coronary artery and aortic valve calcification. No pericardial or pleural effusion. Biliary duct dilatation likely a reservoir effect in the post cholecystectomy state. 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 On lung windows, solid peripheral 6 mm nodule at the posterior basal right lower lobe (series 11 image 188). Immediately superior to this is a smaller solid 4 mm nodule in the same segment (series 11 image 180). Respiratory motion artifact mildly degrades evaluation of the lung parenchyma. Solid peripheral 5 mm nodule at the central base of the right lower lobe (series 11 image 182). 2 solid punctate nodules noted in the periphery of the left upper lobe (series 11 image 110). Solid peripheral 4 mm nodule in the posterior apical segment of the left upper lobe (series 11 image 72). Solid 3 mm nodule in the superior segment of the left lower lobe (series 11 image 114). Minimal dependent changes and dependent nodularity, possibly atelectasis. Central airways patent. On bone windows, degenerative changes of the spine. Nondisplaced fractures suspected at the left third and fourth ribs laterally given contour abnormality. IMPRESSION: 1. Findings suggest nondisplaced fractures of the lateral left third and fourth ribs. No other evidence of acute intrathoracic injury. 2. Multiple solid pulmonary nodules measuring up to 6 mm. Follow-up per [place] Society 2017 recommendations below. Please refer to below summary of Fleischner Society 2017 recommendations for follow-up of incidental CT nodules (H Maegan et al. Guidelines for management of incidental pulmonary nodules detected on CT images: From the Fleischner Society 2017. Radiology 2017; 284: 228-243.) SOLID NODULES Single nodule; size < 6 mm * Low risk patients: No routine follow-up * High risk patients: Optional CT at 12 months Single nodule; size 6-8 mm * Low risk patients: CT at 6-12 months, then consider CT at 18-24 months * High risk patients: CT at 6-12 months, then at 18-24 months Single nodule; size > 8 mm * Either low or high risk patients: Considered CT at 3 months, PET/CT, or tissue sampling Multiple nodules; size < 6 mm * Low risk patients: No routine follow up * High risk patients: Optional CT at 12 months Multiple nodules; size 6-8 mm * Low risk patients: CT at 3-6 months, then consider CT at 18-24 months * High risk patients: CT at 3-6 months, then at 18-24 months Multiple nodules; size > 8 mm * Low risk patients: CT at 3-6 months, then consider at 18-24 months * High risk patients: CT at 3-6 months, then at 18-24 months SUBSOLID NODULES Single ground-glass nodule * Nodule size < 6 mm: No routine follow-up * Nodule size > or = 6 mm: CT at 6-12 months to confirm persistence, then CT every 2 years until 5 years Single part-solid nodule * Nodule size < 6 mm: No routine follow-up * Nodules size > or = 6 mm: CT at 3-6 months to confirm persistence. If unchanged and solid component remains < 6 mm, annual CT should be performed for 5 years Multiple nodules * Nodule size < 6 mm: CT at 3-6 months. If stable, consider CT at 2 and 4 years. * Nodules size > or = 6 mm: CT at 3-6 months. Subsequent management based on the most suspicious nodule(s) NOTE: These guidelines apply to incidental nodules. These guidelines do not apply to patients younger than 35 years, immunocompromised patients, or patients with cancer. * Low risk patients: Minimal or absent history of smoking and/or other known risk factors * High risk patients: History of smoking, exposure to other carcinogens, emphysema, fibrosis, upper lobe location, family history of lung cancer, etc. If a nodule up to 8 mm is partly solid or is ground glass, further follow-up is required after 24 months to exclude possible slow growing adenocarcinoma. Electronically signed by: Darek Rivers M.D. 10/21/2017 3:52 PM Dictated Date/Time: 10/21/2017 3:39 PM
--- NOTE | 2017-10-21 15:55 | DIAGNOSTIC IMAGING REPORT ---
R ANKLE MIN 3 VIEWS ROUTINE CLINICAL HISTORY: fall, twisted foot, ankle, eval trauma COMPARISON: None FINDINGS: Alignment of the right ankle is anatomic. There is no acute fracture. There is moderate lateral ankle soft tissue swelling. Talar dome is intact. There is moderate plantar calcaneal spurring. Note is made of moderate to severe mid foot osteoarthritis. IMPRESSION: 1. No acute fracture or dislocation of the right ankle. 2. 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 3. Lateral ankle soft tissue swelling. Electronically signed by: Colton Chou M.D. 10/21/2017 3:53 PM Dictated Date/Time: 10/21/2017 3:52 PM
--- NOTE | 2017-10-21 15:57 | DIAGNOSTIC IMAGING REPORT ---
R FOOT MIN 3 VIEWS ROUTINE CLINICAL HISTORY: Right foot pain status post trauma COMPARISON: None. DISCUSSION: The bones are osteopenic. No acute fractures are visualized. Moderate degenerative changes are present within the midfoot and hindfoot. As a plantar calcaneal spur. IMPRESSION: 1. Osteopenia 2. No acute fractures 3. Moderate arthritic changes Electronically signed by: Taz Lau M.D. 10/21/2017 3:56 PM Dictated Date/Time: 10/21/2017 3:55 PM
--- NOTE | 2017-10-21 16:06 | DIAGNOSTIC IMAGING REPORT ---
ABD/PELVIS IV CONTRAST ONLY CLINICAL HISTORY: 77 years-old Female presenting with fall, LUQ pain, rib pain. TECHNIQUE: Multidetector CT of the abdomen and pelvis was performed after the administration of intravenous contrast. IV contrast: 117 mL of Optiray 320. A dose lowering technique was used consistent with the principles of ALARA (as low as reasonably achievable). COMPARISON: None. CT DOSE (mGy.cm): The estimated cumulative dose is 2492.63. FINDINGS: Anode Worker topogram: Surgical clips project over the epigastrium. Lung bases: Minimal basilar opacities, likely atelectasis. Multiple solid pulmonary nodules at the lung bases. Multichamber enlargement of the heart. Coronary artery calcification. No pericardial or pleural effusion. Liver: Normal morphology. Subcentimeter hypodense lesion in the right hepatic lobe, indeterminate but likely hepatic cyst. Patent hepatic vasculature. Biliary: Mild biliary ductal prominence likely a reservoir effect in the post cholecystectomy state. Gallbladder surgically absent. Pancreas: Moderate parenchymal atrophy. Spleen: Normal. Adrenal glands: Nonspecific thickening of the lateral limb of the left adrenal gland. Right adrenal gland normal. Kidneys and ureters: Mild left perinephric fat stranding.. Mild bilateral periureteral fat stranding. Significant urothelial thickening greater on the left but bilateral. No hydronephrosis. No nephrolithiasis. No ureteral calculus. Bladder: Circumferential bladder wall thickening. Pelvic organs: Uterus surgically absent. No adnexal mass. Bowel: Severe diverticulosis of the sigmoid colon. Mild stool burden throughout normal caliber colon. Normal appendix. No bowel obstruction. 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 The distal small bowel anastomosis is patent. No abnormal distention of the pancreaticobiliary limb or excluded stomach. Peritoneal cavity: No free fluid or intraperitoneal gas. Lymph nodes: No enlarged lymph nodes in the abdomen or pelvis. Vasculature: Atherosclerosis of the normal caliber abdominal aorta. IVC patent. Abdominal wall: Postsurgical changes of the umbilical abdominal wall. Atrophy of the rectus abdominis greater on the right. Musculoskeletal: Degenerative changes of the spine. Acute fracture of the left lateral eighth through 10th ribs. IMPRESSION: 1. Acute fractures of the lateral eighth through 10th left ribs. 2. No evidence of intra-abdominal injury. 3. Multiple solid pulmonary nodules at the lung bases. Please see separate dictated CT of the chest. 4. Diverticulosis. 5. 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 6. Significant urothelial thickening and mild perinephric and periureteral inflammatory change accompanied by mild circumference of bladder wall thickening. This raises concern for cystitis with upper tract involvement of infection. Correlate with urinalysis. No hydronephrosis. Electronically signed by: Darek Rivers M.D. 10/21/2017 4:05 PM Dictated Date/Time: 10/21/2017 3:52 PM
[2017-10-21] MEDS ORDERED: ACETAMINOPHEN 500 MG TAB PO STA (16:23)
[2017-10-21] MEDS ORDERED: OXYC1TAB3 PO (16:40)
[2017-10-21] MEDS ORDERED: CEFD300C2 PO (16:40)
[2017-10-21] MEDS ORDERED: CEFTRIAXONE SOD INJ 1 GM ADDVIAL IV STA (16:46)
[2017-10-21] MEDS ORDERED: CEFTRIAXONE SOD 350MG/ML 1 GM VIAL IM STA (16:56)
[2017-10-21 17:13] VITALS: BP 135/81; PULSE 85; O2SAT 94
--- NOTE | 2017-10-23 13:30 | Pharmacy Progress Note ---
ED Pharmacist Culture FollowUp Date of Service: Oct 23, 2017. Patient was sent home with a prescription for cefdinir 300mg bid x 10 days, which should cover the E.coli growing from the patient's urine culture.
== END 2017-10-21 17:30 | disposition home or self-care (01) ==
LOC: C.EDB 12:45 → C.ED 17:30 → C.EDD 17:30
DX: S22.42XA Multiple fractures of ribs, left side, initial encounter for closed fracture (principal); S93.401A Sprain of unspecified ligament of right ankle, initial encounter; S00.83XA Contusion of other part of head, initial encounter; W01.198A Fall on same level from slipping, tripping and stumbling with subsequent striking against other object, initial encounter; N30.01 Acute cystitis with hematuria; I10 Essential (primary) hypertension; K21.9 Gastro-esophageal reflux disease without esophagitis; F32.9 Major depressive disorder, single episode, unspecified; E78.5 Hyperlipidemia, unspecified; Z79.82 Long term (current) use of aspirin; Z91.048 Other nonmedicinal substance allergy status; Z91.018 Allergy to other foods; Z88.8 Allergy status to other drugs, medicaments and biological substances

== ENCOUNTER → 2017-11-29 | Outpatient (CLI) | payer BC ==
[~2017-11-29] MED LIST changes: +OXYC1TAB3 PO
--- NOTE | 2017-12-02 14:32 | MAMMOGRAPHY REPORT ---
BILATERAL DIGITAL SCREENING MAMMOGRAM TOMOSYNTHESIS WITH CAD: 11/29/2017 CLINICAL HISTORY: Routine screening. Patient has no complaints. TECHNIQUE: Breast tomosynthesis in addition to standard 2D mammography was performed. Current study was also evaluated with a Computer Aided Detection (CAD) system. COMPARISON: Comparison is made to exams dated: 06/14/2016 mammogram, 04/26/2015 mammogram, 03/04/2014 m ammogram, 01/09/2013 mammogram, 01/09/2012 mammogram, and 01/22/2011 stereotactic biopsy - [facility]. BREAST COMPOSITION: There are scattered areas of fibroglandular density in both breasts. FINDINGS: There are grouped calcifications within the left upper outer quadrant posteriorly, for whic h spot magnification views are recommended for further evaluation. The remainder of both breasts are stable compared to prior exams, without suspicious masses, calcific ations, or areas of architectural distortion noted. Previously biopsied calcifications with associate d biopsy marker clip in the right upper outer quadrant are not significantly changed. There are stab le postsurgical changes from bilateral reduction mammoplasty. A cardiac loop recorder overlies the l eft pectoralis muscle on the MLO view. IMPRESSION: ACR BI-RADS CATEGORY 0: INCOMPLETE EVALUATION: NEED ADDITIONAL IMAGING EVALUATION Left upper outer quadrant calcifications, for which additional imaging evaluation is recommended. Th e patient will be called to schedule an appointment. Approximately 10% of breast cancers are not detected with mammography. A negative mammographic report should not delay biopsy if a clinically suggestive mass is present. Emelia Badillo M.D. ah/:11/29/2017 16:14:19 Stone Setter Apprentice: Yocasta Rodriguez, [facility] letter sent: Addl Imaging 0 BI-RADS Code: ACR BI-RADS Category 0: Incomplete Evaluation: Need Additional Imaging Evaluation
== END | disposition home or self-care (01) ==
LOC: C.MAMM 11:36
PROVIDERS: ATTEND Family Medicine
DX: Z12.31 Encounter for screening mammogram for malignant neoplasm of breast (principal); R92.1 Mammographic calcification found on diagnostic imaging of breast

== ENCOUNTER → 2017-12-13 | Outpatient (CLI) | payer BC ==
--- NOTE | 2017-12-13 15:15 | MAMMOGRAPHY REPORT ---
UNILATERAL LEFT DIGITAL DIAGNOSTIC MAMMOGRAM: 12/13/2017 CLINICAL HISTORY: Callback from screening mammogram for left breast calcifications. TECHNIQUE: Spot magnification left CC and ML views were obtained. COMPARISON: Comparison is made to exams dated: 11/29/2017 mammogram, 06/14/2016 mammogram, 04/26/2015 m ammogram, 03/04/2014 mammogram, 01/09/2013 mammogram, and 01/09/2012 mammogram - [facility]. BREAST COMPOSITION: There are scattered areas of fibroglandular density in the left breast. FINDINGS: Spot magnification views of the left breast demonstrate an 8 mm group of coarse heterogeneo us calcifications in the left upper outer quadrant posteriorly. The calcifications have minimally in creased compared to the 2014 and 2015 exam. Although the calcifications may represent a degenerating fibroadenoma or fat necrosis, the calcifications are indeterminate given that they have increased an d stereotactic biopsy is recommended for further evaluation. IMPRESSION: ACR BI-RADS CATEGORY 4: SUSPICIOUS Grouped coarse heterogeneous calcifications in the left upper outer quadrant. The calcifications are indeterminate and stereotactic biopsy is recommended for further evaluation. A phone call was made to the physician's office to confirm faxed results were received. The patient has been verbally notified of the results. She tentatively scheduled the biopsy before leaving the d epartment. Approximately 10% of breast cancers are not detected with mammography. A negative mammographic report should not delay biopsy if a clinically suggestive mass is present. Emelia Badillo M.D. ah/:12/13/2017 09:37:04 Community Health Advocate: Ambrosio FARRELL(Narda)(Lexie), [facility] letter sent: Abnormal 4/5 BI-RADS Code: ACR BI-RADS Category 4: Suspicious
== END | disposition home or self-care (01) ==
LOC: C.MAMM 08:36
PROVIDERS: ATTEND Family Medicine
DX: R92.1 Mammographic calcification found on diagnostic imaging of breast (principal)